=== PATIENT | female | born 1960 | race Caucasian/White ===

== ENCOUNTER 2018-04-07 02:52 | Emergency (ER) | payer SELFPAY ==
[~2018-04-07] VITALS: Ht 160 cm; Wt 91.6 kg
[2018-04-07 03:00] VITALS: BP_SYST 152
[2018-04-07] MEDS ORDERED: NACL 0.9% 1,000 ML IV ONE (04:15)
[2018-04-07] MEDS ORDERED: ONDANSETRON HCL 4 MG/2 ML VIAL IVP ONE (04:15)
[2018-04-07] MEDS ORDERED: KETOROLAC TROMETHAMINE 30 MG VIAL IVP ONE (04:15)
[2018-04-07 05:04] LABS: BASOPHILS # (AUTO) 0.1 K/uL (0.0-0.2); BASOPHILS % (AUTO) 1.6 % (0.0-2.0); EOSINOPHILS # (AUTO) 0.2 K/uL (0.0-0.4); EOSINOPHILS % (AUTO) 4.5 % (0.0-4.0); HEMATOCRIT 45.7 % (36-48); HEMOGLOBIN 15.1 g/dL (12.0-16.0); LYMPHOCYTES # (AUTO) 1.8 K/uL (1.0-5.5); LYMPHOCYTES % (AUTO) 38.8 % (20.5-51.5); MEAN CORPUSCULAR HEMOGLOBIN 32 pg (27-31); MEAN CORPUSCULAR HGB CONC 33 % (32-36); MEAN CORPUSCULAR VOLUME 96 fL (79.0-98.0); MONOCYTES # (AUTO) 0.4 K/uL (0.0-1.0); MONOCYTES % (AUTO) 8.4 % (1.7-9.3); NEUTROPHILS # (AUTO) 2.2 K/uL (1.8-7.7); NEUTROPHILS % (AUTO) 46.7 % (40.0-70.0); PLATELET COUNT (AUTO) 134 K/uL (130-430); RED BLOOD CELL COUNT(AUTO) 4.77 MIL/uL (4.2-6.2); RED CELL DISTRIBUTION WIDTH 13.4 % (9.0-15.0); WHITE BLOOD COUNT (AUTO) 4.7 K/uL (4.8-10.8)
[2018-04-07 05:05] LABS: CALCIUM 8.8 mg/dL (8.4-11.0); CREATININE 0.7 mg/dL (0.55-1.30); POTASSIUM 3.7 mmol/L (3.5-5.1)
[2018-04-07 05:11] LABS: ALBUMIN 3.4 g/dL (3.4-4.8); TOTAL BILIRUBIN 0.5 mg/dL (0.0-1.0)
[2018-04-07] MEDS ORDERED: MORPHINE 4 MG/ML INJ. SYRINGE IVP ONE ×2 (05:45→07:30)
[2018-04-07 07:48] VITALS: BP_SYST 146
== END 2018-04-07 07:50 | disposition home or self-care (01) ==
LOC: SED 02:52
DX: K80.20 Calculus of gallbladder without cholecystitis without obstruction (principal); F17.200 Nicotine dependence, unspecified, uncomplicated
CPT/HCPCS: 36415; 74176; 80053; 85025; 96374; 96375; 96376; 99285; J1885; J2270; J2405; J7030

== ENCOUNTER 2018-07-03 16:59 | Emergency (ER) | payer SELFPAY ==
[~2018-07-03] VITALS: Ht 162.6 cm; Wt 88.5 kg
[2018-07-03 17:03] VITALS: BP_SYST 124
[2018-07-03] MEDS ORDERED: KETOROLAC TROMETHAMINE 30 MG VIAL IM ONE (17:30)
[2018-07-03 18:20] VITALS: BP_SYST 124
== END 2018-07-03 18:17 | disposition home or self-care (01) ==
LOC: SED 16:59
DX: H66.91 Otitis media, unspecified, right ear (principal); J06.9 Acute upper respiratory infection, unspecified; R51 Headache; I10 Essential (primary) hypertension; Z90.49 Acquired absence of other specified parts of digestive tract
CPT/HCPCS: 36415; 71046; 86710; 96372; 99283; J1885